=== PATIENT | male | born 1995 | race Caucasian/White ===

== ENCOUNTER 2018-03-05 15:58 | Emergency (ER) | payer SELFPAY, OTHER ==
[2018-03-05] MEDS: TRIMETHOPRIM/SULFAMETHOX (DS) TAB PO (16:40)
[2018-03-05] MEDS: CEPHALEXIN 500 MG CAP PO (16:40)
[2018-03-05] MEDS: LIDOCAINE 1%/EPI (MDV) 50 ML INJ INJ (16:48)
[2018-03-05] MEDS: LIDOCAINE 1% (MDV) 50 ML INJ SC (16:55)
[2018-03-05] MEDS: LIDOCAINE 1% (MDV) 20 ML INJ SC (16:55)
[2018-03-05] MEDS: DIPHTH/TET/ACEL PERTUSS (ADULT) 0.5 ML VIAL IM* (17:24)
== END 2018-03-05 17:29 | disposition home or self-care (01) ==
LOC: FTE 17:29
DX: L60.0 Ingrowing nail (principal); L03.032 Cellulitis of left toe; Z23 Encounter for immunization
CPT/HCPCS: 11730; 90471; 90715; 99283-25